=== PATIENT | male | born 1970 | race Caucasian/White ===

== ENCOUNTER 2018-05-18 03:06 | Emergency (ER) | payer OTHER ==
--- NOTE | 2018-05-18 03:33 | EDM.PDOC ---
ED HPI GENERAL MEDICAL PROBLEM - General Chief Complaint: Upper Extremity Injury/Pain Stated Complaint: crush injury of right hand with laceration Time Seen by Provider: 05/18/18 03:15 Source of Information: Reports: Patient History Limitations: Reports: No Limitations - History of Present Illness Onset: Today Duration: Minutes: Location: Reports: Upper Extremity, Right Quality: Reports: Ache, Dull Severity: Moderate Improves with: Reports: Cold Therapy Worsens with: Reports: None Context: Reports: Trauma - Related Data Allergies Allergy/AdvReac Type Severity Reaction Status Date / Time No Known Allergies Allergy Verified 05/18/18 03:25 Home Meds: Home Meds Lisinopril 10 mg PO DAILY 05/18/18 [History] Oxybutynin 5 mg PO DAILY 05/18/18 [History] Review of Systems - Review of Systems Review Of Systems: See Below Constitutional: Reports: No Symptoms Eyes: Reports: No Symptoms Ears: Reports: No Symptoms Nose: Reports: No Symptoms Mouth/Throat: Reports: No Symptoms Respiratory: Reports: No Symptoms Cardiovascular: Reports: No Symptoms GI/Abdominal: Reports: No Symptoms Genitourinary: Reports: No Symptoms Musculoskeletal: Reports: No Symptoms Skin: Reports: Wound (Laceration right hand) Neurological: Reports: No Symptoms Psychiatric: Reports: No Symptoms ED EXAM, GENERAL - Physical Exam Exam: See Below Exam Limited By: No Limitations General Appearance: Alert, WD/WN, No Apparent Distress Ears: Normal External Exam, Normal Canal, Hearing Grossly Normal, Normal TMs Ear Exam: Bilateral Ear: Auricle Normal, Canal Normal, TM normal Nose: Normal Inspection, Normal Mucosa, No Blood Throat/Mouth: Normal Inspection, Normal Lips, Normal Teeth, Normal Gums, Normal Oropharynx, Normal Voice, No Airway Compromise Head: Atraumatic, Normocephalic Neck: Normal Inspection, Supple, Non-Tender, Full Range of Motion Respiratory/Chest: No Respiratory Distress, Lungs Clear, Normal Breath Sounds, No Accessory Muscle Use, Chest Non-Tender Cardiovascular: Normal Peripheral Pulses, Regular Rate, Rhythm, No Edema, No Gallop, No JVD, No Murmur, No Rub GI/Abdominal: Normal Bowel Sounds, Soft, Non-Tender, No Organomegaly, No Distention, No Abnormal Bruit, No Mass (Male) Exam: Deferred Rectal (Males) Exam: Deferred Back Exam: Normal Inspection, Full Range of Motion, NT Extremities: Other (Crush injury to right hand with laceration PALMAR ASPECT of the hand) Neurological: Alert, Oriented, CN II-XII Intact, Normal Cognition, Normal Gait, Normal Reflexes, No Motor/Sensory Deficits Psychiatric: Normal Affect, Normal Mood ED TRAUMA EXTREMITY PROCEDURES - Laceration/Wound Repair Right Anterior Proximal Hand Distal NVT: Neuro & Vascular Intact Anesthetic Type: Local Local Anesthesia - Lidocaine (Xylocaine): 1% Plain Local Anesthetic Volume: Other (15ml) Skin Prep: Chlorhexidine (Hibiciens) Exploration/Debridement/Repair: Wound Explored, Minimal Debridement, Wound Margins Revised, Multiple Flaps Aligned Closed With: Sutures Suture Size: 3-0 # of Sutures: 12 Suture Type: Nylon - Additional/Other Procedure(s) Other (Free Text) Procedure(s): Patient is a 47-year-old who is seen with laceration in the right hand between the index and thumb this is a 5 cm semicircular flap caused by a traumatic injury of the hand according to patient a tract from a [place]cat fell on his hand causing a crush injury and a tear type flap on the palmar area of the hand between the thumb and the index finger at this time area was prepped and cleaned after appropriate draping we proceeded to numb the laceration with 1% lidocaine after appropriate anesthesia using approximately 15 mL's of lidocaine the area was numbed at this time using 3-0 nylon the wound edges were approximated the edges were refreshed with sharp scissors and then using 30 the skin was approximated and closed 12 sutures were used patient tolerated procedure well sent home in satisfactory condition patient has tetanus up-to- date follow-up in clinic Thursday the 2017 please call for appointment at [phone]. Course - Vital Signs Last Recorded V/S: Last Vital Signs Temp 96.6 F 05/18/18 03:06 Pulse 76 05/18/18 03:06 Resp 16 05/18/18 03:06 BP Pulse Ox 97 05/18/18 03:06 - Orders/Labs/Meds Orders: Active Orders 24 hr Category Date Time Status Hand Comp Min 3V Rt [CR] Stat Exams 05/18/18 03:25 Taken Meds: Medications Discontinued Medications Generic Name Dose Route Start Last Admin Trade Name Freq PRN Reason Stop Dose Admin Lidocaine HCl 10 ml 05/18/18 03:27 05/18/18 03:32 Xylocaine-Mpf 1% INJECT 05/18/18 03:28 10 ml ONETIME ONE Administration Lidocaine HCl 10 ml 05/18/18 03:33 05/18/18 04:36 Xylocaine-Mpf 1% INJECT 05/18/18 03:34 10 ml ONETIME ONE Administration Neomycin/Polymyxin/Bacitracin 1 each 05/18/18 04:33 05/18/18 04:36 Triple Antibiotic Oint TOP 05/18/18 04:34 1 each ONETIME ONE Administration Departure - Departure Time of Disposition: 04:53 Disposition: Home, Self-Care 01 Condition: Fair Clinical Impression: Laceration of hand - Discharge Information Forms: ED Department Discharge Care Plan Goals: Follow-up Thursday the seventh with me in the clinic number is call for appointment may return for dressing changes to the clinic in 48 patient placed in Augmentin 875 twice a day for 10 days - My Orders Last 24 Hours: My Active Orders 05/18/18 03:25 Hand Comp Min 3V Rt [CR] Stat - Assessment/Plan Last 24 Hours: My Active Orders 05/18/18 03:25 Hand Comp Min 3V Rt [CR] Stat
[2018-05-18] MEDS: Bacitracin/Neomycin/Polymyxin B Oint 0.9 GM U/D Packet TOP ONE (04:36)
== END 2018-05-18 05:13 | disposition home or self-care (01) ==
LOC: LL.ED 03:06
DX: S67.21XA Crushing injury of right hand, initial encounter (principal); S61.411A Laceration without foreign body of right hand, initial encounter; Z79.899 Other long term (current) drug therapy; W20.8XXA Other cause of strike by thrown, projected or falling object, initial encounter
CPT/HCPCS: 12002; 73130-RT; 99283

== ENCOUNTER → 2022-06-25 | Emergency (ER) | payer OTHER, BC ==
[2022-07-16 07:54] LABS: ANION GAP 9.8 meq/L (7-15); CHLORIDE,CL 105 mmol/L (98-107); ESTIMATED GFR 93 mL/min (>=60); SODIUM,NA 142 mmol/L (136-145)
== END ==
LOC: LL.ED 09:32
DX: I16.0 Hypertensive urgency (principal); I10 Essential (primary) hypertension; E66.01 Morbid (severe) obesity due to excess calories
CPT/HCPCS: 36415; 80053; 99283